=== PATIENT | male | born 2005 ===

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

== ENCOUNTER 2025-05-11 20:32 | Emergency (ER) | payer OTHER ==
[~2025-05-11] VITALS: Ht 180.3 cm; Wt 108.9 kg
[~2025-05-11 20:32] MED LIST changes: +ONDA4ODT MM; +Protonix40 MG PO
[2025-05-11 20:50] LABS: pH Blood Venous 7.39 (7.34-7.37)
[2025-05-11] MEDS ORDERED: Naloxone HCl 0.4MG / ML 1ML Vial IV ONE (20:50)
[2025-05-11 20:57] LABS: BASOPHILS ABSOLUTE AUTO 0.07 K/mm3 (0.00-0.23); BASOPHILS PERCENT AUTO 1 % (0-2); EOSINOPHILS ABSOLUTE AUTO 0.19 K/mm3 (0.00-0.68); EOSINOPHILS PERCENT AUTO 2 % (0-6); Hematocrit 45.3 % (37.0-53.0); Hemoglobin 15.4 g/dL (13.5-17.5); IMMATURE GRAN ABSOLUTE AUTO 0.05 K/mm3 (0.00-0.10); IMMATURE GRAN PERCENT AUTO 1 % (0-1); LYMPHOCYTES ABSOLUTE AUTO 2.25 K/mm3 (0.84-5.20); LYMPHOCYTES PERCENT AUTO 25 % (21-46); MONOCYTES ABSOLUTE AUTO 0.52 K/mm3 (0.16-1.47); MONOCYTES PERCENT AUTO 6 % (4-13); Mean Corpuscular HGB Conc 34.0 g/dL (31.5-36.5); Mean Corpuscular Volume 75 fL (80-100); NEUTROPHILS ABSOLUTE AUTO 6.04 K/mm3 (1.96-9.15); NEUTROPHILS PERCENT AUTO 66 % (41-73); NRBC ABSOLUTE 0.00 K/mm3 (0.00-0.02); NRBC Auto 0.0 /100 WBC (0.0-0.2); RDW Coefficient Variation 12.9 % (11.7-14.2); RDW Standard Deviation 34.5 fL (35.1-46.3)
[2025-05-11 21:00] LABS: Platelet Count 318 K/mm3 (150-400)
[2025-05-11] MEDS ORDERED: Haloperidol Lactate Inj. 5 MG/ML Injection IV ONE (21:00)
[2025-05-11 21:15] LABS: Alanine Aminotransfer (ALT/SGP 60.0 U/L (12-78); Albumin, Blood 4.5 g/dL (3.4-5.0); Albumin/Globulin Ratio 1.3 (0.8-1.8); Anion Gap 14.0 mmol/L (3-11); Aspartate Aminotrans (AST/SGOT 24.0 U/L (12-37); Bilirubin, Total 0.8 mg/dL (0.1-1.0); Blood Urea Nitrogen 6.0 mg/dL (8-21); CO2, Blood 18.0 mmol/L (21-32); Calcium, Blood 9.2 mg/dL (8.5-10.1); Chloride, Blood 109.0 mmol/L (98-108); Creatinine, Blood 0.87 mg/dL (0.60-1.20); Ethanol (Alcohol), Blood, Med 177.0 mg/dL; Globulin, Blood 3.5 g/dL (2.2-4.0); Glucose, Blood 112.0 mg/dL (70-99); Potassium, Blood 3.3 mmol/L (3.5-5.5); Sodium, Blood 138.0 mmol/L (136-145); Total Protein, Blood 8.0 g/dL (6.4-8.2)
[2025-05-12 01:14] VITALS: BP 122/67
== END 2025-05-12 01:15 | disposition home or self-care (01) ==
LOC: ER 20:32
PROVIDERS: Emergency Medicine
DX: F10.129 Alcohol abuse with intoxication, unspecified (principal); R45.1 Restlessness and agitation
CPT/HCPCS: 80053; 80320; 82550; 82803; 85025; 93005; 93010; 96374; 96375; 99284-25; J1630; J2312

== ENCOUNTER 2025-06-14 20:15 | Inpatient (IN) | payer OTHER ==
[~2025-06-14] VITALS: Ht 175.3 cm; Wt 107.6 kg
[~2025-06-14 20:15] MED LIST changes: +Enoxaparin 40 MG/0.4 ML SYR SC SCH; +Etomidate 2MG / ML 10ML Vial IV ONE; +LORazepam 2 MG/ML 1ML Injection IV ONE; +Midazolam HCl 1MG / ML 2ML Vial IV ONE; +Propofol 10mg/ml 20 ml Vial (Procedural) IV ONE; +Rocuronium Bromide 10 MG/ML 5ML Injection IV ONE
[2025-06-14 20:32] LABS: Calcium, Ionized (POC) 1.15 mmol/L (1.10-1.46); Chloride (POC) 107 mmol/L (98-108); Creatinine (POC) 1.3 mg/dL (0.8-1.3); Glucose (ISTAT POC) 92 mg/dL (70-99); Hematocrit (POC) 47.0 % (41.0-53.0); Hemoglobin (POC) 16.0 g/dL (13.5-17.5); Potassium (POC) 3.9 mmol/L (3.5-5.5); Sodium (POC) 144 mmol/L (135-148); Total CO2 (POC) 22 mmol/L (21-32)
[2025-06-14] MEDS ORDERED: FentaNYL Citrate 50 MCG/ML 2 ML Injection IV SCH (20:40)
[2025-06-14] MEDS ORDERED: Rocuronium Bromide 10 MG/ML 5ML Injection IV ONE (20:40)
[2025-06-14] MEDS ORDERED: Etomidate 2MG / ML 10ML Vial IV ONE (20:40)
[2025-06-14 20:55] LABS: BASOPHILS ABSOLUTE AUTO 0.07 K/mm3 (0.00-0.23); BASOPHILS PERCENT AUTO 1 % (0-2); EOSINOPHILS ABSOLUTE AUTO 0.09 K/mm3 (0.00-0.68); EOSINOPHILS PERCENT AUTO 1 % (0-6); Hematocrit 47.1 % (37.0-53.0); Hemoglobin 15.6 g/dL (13.5-17.5); IMMATURE GRAN ABSOLUTE AUTO 0.03 K/mm3 (0.00-0.10); IMMATURE GRAN PERCENT AUTO 0 % (0-1); LYMPHOCYTES ABSOLUTE AUTO 2.24 K/mm3 (0.84-5.20); LYMPHOCYTES PERCENT AUTO 24 % (21-46); MONOCYTES ABSOLUTE AUTO 0.60 K/mm3 (0.16-1.47); MONOCYTES PERCENT AUTO 6 % (4-13); Mean Corpuscular HGB Conc 33.1 g/dL (31.5-36.5); Mean Corpuscular Volume 77 fL (80-100); NEUTROPHILS ABSOLUTE AUTO 6.37 K/mm3 (1.96-9.15); NEUTROPHILS PERCENT AUTO 68 % (41-73); NRBC ABSOLUTE 0.00 K/mm3 (0.00-0.02); NRBC Auto 0.0 /100 WBC (0.0-0.2); Platelet Count 333 K/mm3 (150-400); RDW Coefficient Variation 12.7 % (11.7-14.2); RDW Standard Deviation 34.8 fL (35.1-46.3)
[2025-06-14 20:56] LABS: Source, Urine Foley catheter
[2025-06-14 20:58] LABS: Bilirubin, Urine Neg (Neg); Glucose Qualitative, Urine Neg (Neg); Ketones, Urine Neg (Neg); Leukocyte Esterase, Urine Neg (Neg); Protein, Urine Neg (Neg); Specific Gravity, Urine 1.005 (1.003-1.022); Urobilinogen, Urine NORM (Normal)
[2025-06-14 21:03] LABS: Color, Urine Pale Yellow (P-Yellow)
[2025-06-14 21:05] LABS: pH Blood Venous 7.37 (7.34-7.37)
[2025-06-14 21:22] LABS: U Amphetamine Screen Not Detected; U Barbiturate Screen Not Detected; U Benzodiazapine Screen Not Detected; U Buprenorphine Screen Not Detected; U Cannabinoids Screen DETECTED; U Cocaine Screen Not Detected; U Methadone Screen Not Detected; U Methamphetamine Screen Not Detected; U Opiates Screen Not Detected; U Oxycodone Screen Not Detected; U Phencyclidine Screen Not Detected
[2025-06-14 21:25] LABS: Ethanol (Alcohol), Blood, Med 186 mg/dL; Salicylate <1.7 mg/dL (2.8-20.0); Thyroid Stimulating Hormone 1.920 uIU/mL (0.360-4.800)
[2025-06-14 21:27] LABS: Alanine Aminotransfer (ALT/SGP 43 U/L (12-78); Albumin, Blood 4.6 g/dL (3.4-5.0); Albumin/Globulin Ratio 1.3 (0.8-1.8); Anion Gap 11 mmol/L (3-11); Aspartate Aminotrans (AST/SGOT 25 U/L (12-37); Bilirubin, Total 0.6 mg/dL (0.1-1.0); Blood Urea Nitrogen 5 mg/dL (8-21); CO2, Blood 24 mmol/L (21-32); Calcium, Blood 9.4 mg/dL (8.5-10.1); Chloride, Blood 110 mmol/L (98-108); Creatinine, Blood 0.96 mg/dL (0.60-1.20); Globulin, Blood 3.5 g/dL (2.2-4.0); Glucose, Blood 92 mg/dL (70-99); Potassium, Blood 4.1 mmol/L (3.5-5.5); Sodium, Blood 141 mmol/L (136-145); Total Protein, Blood 8.1 g/dL (6.4-8.2)
[2025-06-14 21:28] LABS: Acetaminophen, Random <2.0 ug/mL (10.0-30.0)
[2025-06-14] MEDS ORDERED: NS 1,000 ML IV ONE (21:43)
[2025-06-14] MEDS ORDERED: NS 1,000 ML IV SCH (22:15)
[2025-06-14] MEDS ORDERED: LORazepam 2 MG/ML 1ML Injection IV ONE (22:20)
[2025-06-14] MEDS ORDERED: Midazolam HCl 1MG / ML 2ML Vial IV ONE ×3 (22:50)
[2025-06-14] MEDS ORDERED: FLU VACC TS2025-26(6MOS UP)/PF 45 MCG/0.5 ML SYRINGE IM SCH (23:30)
[2025-06-14] MEDS ORDERED: D5W-1/2NS 1,000 ML IV SCH (23:30)
[2025-06-14] MEDS ORDERED: Ondansetron HCl 2 MG / ML 2ML Vial IV PRN (23:35)
[2025-06-14] MEDS ORDERED: Cetylpyridinium Chloride 1 EA MISC MT SCH (23:35)
[2025-06-15] VITALS (40 sets, daily range): BP systolic 91–141; BP diastolic 48–87
[2025-06-15] MEDS ORDERED: Hydrogen Peroxide 1.5 % Solution MT SCH
--- NOTE | 2025-06-15 00:30 | NUR ---
CALL TO MD DR. PURCELL NOTIFIED OF SBP 70s WITH MAP LOW 60s WITH PRECEDEX AT 0.1MCG/KG/HR. ALSO NOTIFIED OF CONTINUED AGIATION AND ANXIOUSNESS. NEW ORDER FOR LR BOLUS AT THIS TIME.
[2025-06-15 03:19] LABS: BASOPHILS ABSOLUTE AUTO 0.05 K/mm3 (0.00-0.23); BASOPHILS PERCENT AUTO 1 % (0-2); EOSINOPHILS ABSOLUTE AUTO 0.15 K/mm3 (0.00-0.68); EOSINOPHILS PERCENT AUTO 2 % (0-6); Hematocrit 42.7 % (37.0-53.0); Hemoglobin 14.3 g/dL (13.5-17.5); IMMATURE GRAN ABSOLUTE AUTO 0.03 K/mm3 (0.00-0.10); IMMATURE GRAN PERCENT AUTO 0 % (0-1); LYMPHOCYTES ABSOLUTE AUTO 3.35 K/mm3 (0.84-5.20); LYMPHOCYTES PERCENT AUTO 34 % (21-46); MONOCYTES ABSOLUTE AUTO 0.67 K/mm3 (0.16-1.47); MONOCYTES PERCENT AUTO 7 % (4-13); Mean Corpuscular HGB Conc 33.5 g/dL (31.5-36.5); Mean Corpuscular Volume 76 fL (80-100); NEUTROPHILS ABSOLUTE AUTO 5.67 K/mm3 (1.96-9.15); NEUTROPHILS PERCENT AUTO 57 % (41-73); NRBC ABSOLUTE 0.00 K/mm3 (0.00-0.02); NRBC Auto 0.0 /100 WBC (0.0-0.2); Platelet Count 319 K/mm3 (150-400); RDW Coefficient Variation 12.8 % (11.7-14.2); RDW Standard Deviation 34.9 fL (35.1-46.3)
[2025-06-15 03:38] LABS: Alanine Aminotransfer (ALT/SGP 34.0 U/L (12-78); Albumin, Blood 3.8 g/dL (3.4-5.0); Albumin/Globulin Ratio 1.3 (0.8-1.8); Anion Gap 15.0 mmol/L (3-11); Aspartate Aminotrans (AST/SGOT 17.0 U/L (12-37); Bilirubin, Total 0.7 mg/dL (0.1-1.0); Blood Urea Nitrogen 4.0 mg/dL (8-21); CO2, Blood 20.0 mmol/L (21-32); Calcium, Blood 8.7 mg/dL (8.5-10.1); Chloride, Blood 114.0 mmol/L (98-108); Creatinine, Blood 0.81 mg/dL (0.60-1.20); Globulin, Blood 3.0 g/dL (2.2-4.0); Glucose, Blood 115.0 mg/dL (70-99); Potassium, Blood 3.5 mmol/L (3.5-5.5); Sodium, Blood 145.0 mmol/L (136-145); Total Protein, Blood 6.8 g/dL (6.4-8.2)
--- NOTE | 2025-06-15 06:09 | NUR ---
SHIFT SUMMARY PT FROM ED TO ICU-07 AFTER INTUBATION DUE TO MULITPLE APNEIC EPISODES. PT IS SEDATED WITH A RASS OF -3, SMALL PUPILS EQUAL AND SLUGGISH REACTION TO LIGHT, DOES NOT ARROUSE TO STIMULI, PT IS AFEBRILE. PT IS INTUBATED ON AC/VC MODE 16/5/40% FIO2 WITH SPO2 >95% AND TOLERATING THE VENTILATOR APPROPRIATELY. SBP IN THE 100'S WITH MAP >65 AND HR IN THE 60'S. OG TUBE IN PLACE, PATENT, AND CONNECTED TO SUCTION, MILD ABDOMINAL DISTENTION. PT HAS A LI CATHTER IN PLACE, PATENT, AND DRAINING TO GRAVITY LIGHT YELLOW URINE. NO SIGNIFICANT SKIN ISSUES NOTED. PROPOFOL, PRECEDEX, FENTANYL, AND LEVOPHED INFUSING CURRENTLY. FRIEND (ETHAN) HAS BEEN AT BEDSIDE OVERNIGHT, OTHER FAMILY IS SUPPOSED TO BE IN THIS MORNING. WILL REPORT TO ONCOMING DAYSHIFT NURSE.
--- NOTE | 2025-06-15 08:24 | NUR ---
ASSUMPTION OF CARE ASSUMED CARE OF PT APPROX 0700. PT IS INTUBATED AND SEDATED RASS -4. PT WAS DIFFICULT TO SEDATE ON ADMISSION AND OVERNIGHT, WAKING UP AGITATED AND TRYING TO GRAB ETT. VENT SETTINGS AC VC 16/480/5/25% WITH SATS 98-99%. RHYTHM IS SINUS ON MONTIOR WITH RATE IN THE 60S, BP STABLE WITH MAP >65. LI IN PLACE AND DRAINING TO GRAVITY, OGT IN PLACE AT 63CM HOOKED TO LIS. PROPOFOL INFUSING AT 40, PRECEDEX AT 0.5, FENTANYL AT 50, NOREPI AT 1 AND D5 1/2 NS AT 100ML/HR. CALL LIGHT WITHIN REACH, FAMILY AT BEDSIDE.
[2025-06-15] MEDS ORDERED: Pantoprazole Sodium 40 MG Injection IV SCH (09:00)
[2025-06-15 10:46] LABS: Alanine Aminotransfer (ALT/SGP 32.0 U/L (12-78); Albumin, Blood 3.7 g/dL (3.4-5.0); Albumin/Globulin Ratio 1.3 (0.8-1.8); Anion Gap 9.0 mmol/L (3-11); Aspartate Aminotrans (AST/SGOT 15.0 U/L (12-37); Bilirubin, Total 0.7 mg/dL (0.1-1.0); Blood Urea Nitrogen 5.0 mg/dL (8-21); CO2, Blood 23.0 mmol/L (21-32); Calcium, Blood 9.0 mg/dL (8.5-10.1); Chloride, Blood 114.0 mmol/L (98-108); Creatinine, Blood 0.9 mg/dL (0.60-1.20); Globulin, Blood 2.9 g/dL (2.2-4.0); Glucose, Blood 105.0 mg/dL (70-99); Magnesium, Blood 1.9 mg/dL (1.6-2.4); Phosphorus, Blood 3.4 mg/dL (2.5-4.9); Potassium, Blood 3.4 mmol/L (3.5-5.5); Sodium, Blood 143.0 mmol/L (136-145); Total Protein, Blood 6.6 g/dL (6.4-8.2)
[2025-06-15] MEDS ORDERED: LORazepam 2 MG/ML 1ML Injection IV ONE ×2 (11:15→14:55)
[2025-06-15] MEDS ORDERED: LORazepam 2 MG/ML 1ML Injection ONE ×2 (13:17→14:52)
[2025-06-15] MEDS ORDERED: LORazepam 2 MG/ML 1ML Injection IV PRN (15:10)
--- NOTE | 2025-06-15 17:52 | NUR ---
SHIFT SUMMARY PT WAS EXTUBATED APPROX 1230 AND OGT WAS REMOVED AT THIS TIME. PT REMAINS ORIENTED TO SELF WHEN AWAKE. BECOMES DROWSY AND AROUSABLE TO NOXIOUS STIMULI AND AT TIMES IS ABLE TO BE ROUSED WITH ONLY VERBAL STIM BUT STILL NOT FULLY ALERT OR ORIENTED. RHYTHM REMAINS SINUS WITH RATES IN THE 80S-90S AND BP REMAINS STABLE WITH MAP >65. SATS >92% ON RA. APPROX 1300 PT WAS DESATTING BRIEFLY AND REQUIRING JAW THRUST TO MAINTAIN SATS, WAS RESOLVED APPROX 1330 SEDATION CONTINUED TO WEAR OFF AND HAS SINCE BEEN MAINTAINING OWN AIRWAY AND SATS. PT HAS HAD INTERMITTENT SEIZURE ACTIVITY, IV KEPPRA GIVEN AND ORDERS PLACED FOR IV ATIVAN, SEE MAR FOR DETAILS. LI IN PLACE AND DRAINING CONCENTRATED YELLOW-ORANGE URINE WITH SEDIMENT TO GRAVITY. FAMILY AT BEDSIDE AND CALL LIGHT WITHIN REACH.
--- NOTE | 2025-06-15 19:00 | NUR ---
ASSUMED CARE ASSUMED CARE OF PATIENT. ROUSES TO STIMULI. ORIENTED TO SELF, PLACE AND TO YEAR. SPEECH IS MUMBLED. MOVES ALL EXTREMITIES. FOLLOWS SIMPLE COMMANDS. VSS. MONITOR SHOWS SR, RATE 70s. RESPIRATIONS EVEN AND UNLABORED AT THIS TIME. LI PATENT AND DRAINING TO GRAVITY- YELLOW URINE WITH SEDIMENT NOTED. SEE SHIFT ASSESSMENT FOR FULL ASSESSMENT.
--- NOTE | 2025-06-15 19:50 | NUR ---
SEIZURE ACTIVITY DR. PURCELL NOTIFIED OF RECENT SEIZURE ACTIVITY. PT HAD A TOTAL OF THREE SEIZURES- 30 SECONDS, 15 SECONDS, AND 5 SECONDS IN LENGTH. NOTED HEAD AND UPPER EXTREMITY TWITCHING. MEDICATED WITH ATIVAN 4MG IV.
[2025-06-16] VITALS (12 sets, daily range): BP systolic 113–155; BP diastolic 61–106
--- NOTE | 2025-06-16 00:40 | NUR ---
SEIZURE SEIZURE NOTED LASTING APPROXIMATELY 30 SECONDS FOLLOWED BY PERIOD OF RIGHT UPPER EXTREMITY TWITCHING FOR APPROXIMATELY 5 SECONDS. MEDICATED WITH ATIVAN 4MG IV. DILANTIN LOADING DOSE ORDERED PER DR. PURCELL.
[2025-06-16] MEDS ORDERED: NS IV ONE (00:50)
[2025-06-16] MEDS ORDERED: PHENYTOIN SODIUM IV ONE (00:50)
--- NOTE | 2025-06-16 01:40 | NUR ---
SEIZURE ACTIVITY PT PRESENTING WITH SAME SEIZURE-LIKE ACTIVITY, ALTHOUGH THIS TIME HE IS REACHING FOR HIS FRIEND'S HAND. PT WILL OPEN EYES AND LOOK AT STAFF BEFORE APPEARING TO SEIZE AGAIN.
[2025-06-16 03:43] LABS: BASOPHILS ABSOLUTE AUTO 0.05 K/mm3 (0.00-0.23); BASOPHILS PERCENT AUTO 0 % (0-2); EOSINOPHILS ABSOLUTE AUTO 0.25 K/mm3 (0.00-0.68); EOSINOPHILS PERCENT AUTO 2 % (0-6); Hematocrit 44.8 % (37.0-53.0); Hemoglobin 14.9 g/dL (13.5-17.5); IMMATURE GRAN ABSOLUTE AUTO 0.05 K/mm3 (0.00-0.10); IMMATURE GRAN PERCENT AUTO 0 % (0-1); LYMPHOCYTES ABSOLUTE AUTO 2.01 K/mm3 (0.84-5.20); LYMPHOCYTES PERCENT AUTO 16 % (21-46); MONOCYTES ABSOLUTE AUTO 0.81 K/mm3 (0.16-1.47); MONOCYTES PERCENT AUTO 7 % (4-13); Mean Corpuscular HGB Conc 33.3 g/dL (31.5-36.5); Mean Corpuscular Volume 79 fL (80-100); NEUTROPHILS ABSOLUTE AUTO 9.08 K/mm3 (1.96-9.15); NEUTROPHILS PERCENT AUTO 74 % (41-73); NRBC ABSOLUTE 0.00 K/mm3 (0.00-0.02); NRBC Auto 0.0 /100 WBC (0.0-0.2); Platelet Count 272 K/mm3 (150-400); RDW Coefficient Variation 12.8 % (11.7-14.2); RDW Standard Deviation 36.4 fL (35.1-46.3)
[2025-06-16 04:08] LABS: Anion Gap 8.0 mmol/L (3-11); Blood Urea Nitrogen 8.0 mg/dL (8-21); CO2, Blood 25.0 mmol/L (21-32); Calcium, Blood 9.2 mg/dL (8.5-10.1); Chloride, Blood 110.0 mmol/L (98-108); Creatinine, Blood 1.03 mg/dL (0.60-1.20); Glucose, Blood 111.0 mg/dL (70-99); Magnesium, Blood 1.9 mg/dL (1.6-2.4); Potassium, Blood 3.4 mmol/L (3.5-5.5); Sodium, Blood 140.0 mmol/L (136-145)
--- NOTE | 2025-06-16 06:01 | NUR ---
SHIFT SUMMARY NO ACUTE CHANGES DURING NOC. PT HAD THREE EPISODES OF SEIZURES DURING SHIFT. MEDICATED WITH ATIVAN 4MG IV X 2 DOSES. DILANTIN LOADING DOSE AND KEPPRA GIVEN PER ORDER. OT HAS PERIODS WHERE HE IS AWAKE AND ALERT, TALKING WITH FRIEND AT BEDSIDE. ORIENTED TO SELF, PLACE, YEAR, AND SOMEWHAT TO EVENTS DURING THESE PERIODS. COOPERATIVE WITH CARE. FOLLOWS COMMANDS. DENIES C/O PAIN. AT ONE POINT, PT STATED THAT HE DIDN'T REALLY WANT TO LIVE, BUT THEN ANOTHER TIME HE ASKED STAFF TO "SAVE ME." MONITOR SHOWS SR-ST, RATE 80s-100s. BP STABLE. TMAX 99.7F. LI PATENT AND DRAINING TO GRAVITY, DARK YELLOW URINE. PT IS HIGH SUICIDE RISK. 1:1 SITTER AT BEDSIDE. WILL REPORT TO ONCOMING RN WHEN AVAILABLE.
--- NOTE | 2025-06-16 10:30 | NUR ---
PSYCHIATRY DR GUPTA IN TO SEE PT. PER DR GUPTA OK FOR SUICIDE PRECAUTIONS AND 1:1 SITTER TO BE DISCONTINUED.
--- NOTE | 2025-06-16 16:56 | NUR ---
SHIFT SUMMARY NO ACUTE CHANGES THIS SHIFT. PT HAS REMAINED AWAKE, ALERT, AND ORIENTED MOST OF THE SHIFT. PT ABLE TO FOLLOW COMMANDS AND ANSWER QUESTIONS APPROPRIATELY WHEN AWAKE. PT WITH INTERMITENT EPISODES OF SOMNOLENCE AND APNEA, FOLLOWED BY DEEP BREATHING AND STRETCHING THAT INCREASES IN FREQUENCY WITH VISITORS AT BEDSIDE. PT OTHERWISE MAINTAINS ALERTNESS AND IS ABLE TO TAKE PO INTAKE WELL. GUILLERMO DC'D, PT ABLE TO USE URINAL INDEPENDENTLY. PIV'S IN PLACE, SALINE LOCKED. VITAL SIGNS STABLE. PT ON ROOM AIR. WILL CONTINUE TO MONITOR AND REPORT OFF TO ONCOMING RN.
--- NOTE | 2025-06-16 19:57 | NUR ---
ASSUMPTION OF CARE/ASSESSMENT: ASSUMED CARE OF PT AT 1900; BEDSIDE SHIFT REPORT RECIEVED FROM CISCO MENDOZA. PT SLEEPING IN ROOM, CONVERSING WITH FRIENDS AT BEDSIDE BUT WHEN ASKED ORIENTING QUESTIONS PT IS SILENT. CURRENTLY ON RA, SPO2 96<, LUNGS CLEAR T/O; DOES NOT APPEAR TO BE IN RESPIRATORY DISTRESS. SR-ST ON MONITOR, HR 80-120, SBP 140'S. TOLERATING PO INTAKE. PER DAYSHIFT RN, PT USING URINAL. PT HAS TWO PIVS; ONE TO RFA AND TO LHA. WHEN ASSESSING LFA PIV PT VERBALIZING IMMENSE PAIN, SHAKING AND PUNCHING THE BED. UNABLE TO FLUSH IV, BUT BLOOD PRESENT IN TUBING. PIV PULLED DUE TO PT REFUSING FOR THIS RN TO USE IV. COBAN AND GAUZE PLACED; PT CONTINUED TO PUNCH AND KICK IN BED. NO COPING SKILLS OBSERVED. COACHED DEEP BREATHING EXERCISES WITH THIS RN WERE UNSUCCESSFUL. WHEN ASKED WHAT THIS RN COULD DO TO HELP WITH PAIN IN A PT VERBALIZED "." THIS RN ATTEMPTED TO COMPLETE A SUICIDE SCREENING BUT PT NOT PARTICIPATING IN QUESTIONS. AT THIS POINT PT OBSERVED WITH SPASITC MOVEMENTS OF UPPER BODY AND ARMS, PT OBSERVED HOLDING BREATH/SHALLOW BREATHING. AT THIS TIME, PAIN STIMULI TO FINGER NAIL BED WITH POSITIVE PAIN RESPONSE, PT OBSERVED GASPING AND COUGHING. VSS REMAINED STABLE DURING THIS EPISODE. WILL CONTINUE TO MONITOR.
--- NOTE | 2025-06-16 21:33 | NUR ---
PROVIDER UPDATE: UPDATED CISCO PRINT CUTTER REGARDING BEHAVIOR AND COMMENT REGARDING BEING ALL THAT WILL HELP THE PT. PER CISCO PRINT CUTTER, DR. GUPTA TO BE NOTIFIED REGARDING REINSTATING SUICIDE PRECAUTIONS. CALLED PLACED TO DR. GUPTA AND EXPLAINED COMMENTS ABOUT AND PT'S REFUSAL TO ANSWER SUICIDE SCREENING QUESTIONS. DR. GUPTA DECIDED TO PLACE PT BACK ON SUICIDE PRECAUTIONS AND HAVE A 1:1 SITTER; DR. GUPTA WILL BE BY IN THE MORNING FOR FURTHER EVALUATION AND POTENTIAL NEED FOR PSYCH HOLD. ROOM CLEARED OF UNNECCESSARY ITEMS AND SITTING IN DOORWAY AT THIS TIME.
[2025-06-16] MEDS ORDERED: LORazepam 2 MG/ML 1ML Injection IV PRN (22:05)
[2025-06-17 02:29] VITALS: BP 138/80
--- NOTE | 2025-06-17 05:52 | NUR ---
SHIFT SUMMARY: NO ACUTE CHANGES OVERNIGHT, VSS THROUGHOUT THE SHIFT. PT REMAINS COOPERATIVE WITH STAFF. 1:1 SITTER REMAINS IN ROOM. PT SLEPT ON AND OFF. PT USING URINAL FOR VOIDING. PT UNSTEADY ON FEET, ENCOURAGED TO STAY AT EDGE OF BED WHEN USING URINAL. WILL REPORT OFF TO ONCOMING RN.
[2025-06-17 06:05] VITALS: BP 120/76
[2025-06-17 08:04] LABS: Anion Gap 7.0 mmol/L (3-11); Blood Urea Nitrogen 7.0 mg/dL (8-21); CO2, Blood 26.0 mmol/L (21-32); Calcium, Blood 9.3 mg/dL (8.5-10.1); Chloride, Blood 107.0 mmol/L (98-108); Creatinine, Blood 1.05 mg/dL (0.60-1.20); Glucose, Blood 117.0 mg/dL (70-99); Potassium, Blood 3.3 mmol/L (3.5-5.5); Sodium, Blood 137.0 mmol/L (136-145)
--- NOTE | 2025-06-17 09:27 | NUR ---
PROGRESS NOTE CALLED DR. GUPTA TO NOITIFY THAT DR. SHERMAN MEDICALLY CLEARED THE PT. AWAITING PSYCH EVAL TO DETERIMINE THE PLAN OF CARE.
[2025-06-17] MEDS ORDERED: KEPPRA1000 M2 PO (11:18)
--- NOTE | 2025-06-17 11:55 | NUR ---
PT DISCHARGED WENT OVER DISCHARGE INSTRUCTIONS AND PROVIDED EDUCATION. TAUGHT PATIENT VIA TEACHBACK METHOD. PT EXPRESSED UNDERSTANDING AND SIGNED DISCHARGE FORMS. REMOVED RFA PIV, WNL. WENT THROUGH ROOM WITH PATIENT TO ENSURE ALL BELONGINGS WERE WITH THE PATIENT. PT LEFT THE UNIT WITH ALL OF HIS BELONGINGS AND ESCORTED OUT OF THE UNIT WITH STAFF. PT LEFT WITH FRIEND WHO WAS HIS RN BIRTHING.
[2025-06-19 19:02] LABS: AMITRIPTYLINE, QUANT, URN <100 ng/mL; CLOMIPRAMINE QUANT, URN <200 ng/mL; DESIPRAMINE QUANT, URN <100 ng/mL; DOXEPIN QUANT, URN <100 ng/mL; IMIPRAMINE QUANT, URN <100 ng/mL; NORCLOMIPRAMINE QUANT, URN <200 ng/mL; NORDOXEPIN QUANT, URN <100 ng/mL; NORTRIPTYLINE, QUANT, URN <100 ng/mL; PROTRIPTYLINE QUANT, URN <100 ng/mL
== END 2025-06-17 11:53 | disposition home or self-care (01) | DRG 917 ==
LOC: ER 20:15 → ICUE 20:16
PROVIDERS: Emergency Medicine; Internal Medicine; Internal Medicine Critical Care Medicine; ADMIT Internal Medicine
PROC: 5A1935Z Respiratory Ventilation, Less than 24 Consecutive Hours (ICD-10-PCS; principal; 2025-06-14)
PROC: 0BH17EZ Insertion of Endotracheal Airway into Trachea, Via Natural or Artificial Opening (ICD-10-PCS; 2025-06-14)
PROC: 3E033XZ Introduction of Vasopressor into Peripheral Vein, Percutaneous Approach (ICD-10-PCS; 2025-06-14)
PROC: 0T9B70Z Drainage of Bladder with Drainage Device, Via Natural or Artificial Opening (ICD-10-PCS; 2025-06-15)
DX: T51.0X1A Toxic effect of ethanol, accidental (unintentional), initial encounter (principal); J96.01 Acute respiratory failure with hypoxia; E87.20 Acidosis, unspecified; R45.851 Suicidal ideations; F19.90 Other psychoactive substance use, unspecified, uncomplicated; Y90.6 Blood alcohol level of 120-199 mg/100 ml; T65.891A Toxic effect of other specified substances, accidental (unintentional), initial encounter; G40.909 Epilepsy, unspecified, not intractable, without status epilepticus; I95.9 Hypotension, unspecified; F10.129 Alcohol abuse with intoxication, unspecified; Z63.0 Problems in relationship with spouse or partner; Z91.51 Personal history of suicidal behavior; Z78.1 Physical restraint status
CPT/HCPCS: 31500; 36415; 70450; 71045; 71260; 72125; 80047; 80048; 80053; 80320; 81003; 82607; 82803; 83735; 83880; 84100; 84439; 84443; 85014; 85025; 93005; 93010; 94002; 94003; 96365-59; 96375-59; 96376-59; 99285-25; A9270; G0378; G0480; G0481; J1165; J1650; J1953; J2060; J2250; J2405; J2470; J2704; J3010; J3411; J7030; J7050; Q9967